=== PATIENT | male | born 1965 | race Caucasian/White ===

== ENCOUNTER → 2022-06-05 13:03 | Outpatient (BNVA) | payer OTHER, SELFPAY | PROVIDERS: Visit Provider Nurse Practitioner Family | DX: I10 Essential (primary) hypertension (principal); Z12.5 Encounter for screening for malignant neoplasm of prostate; R36.1 Hematospermia; N40.0 Benign prostatic hyperplasia without lower urinary tract symptoms; L30.9 Dermatitis, unspecified; Z12.11 Encounter for screening for malignant neoplasm of colon; Z80.42 Family history of malignant neoplasm of prostate; F10.20 Alcohol dependence, uncomplicated; Z76.89 Persons encountering health services in other specified circumstances | CPT/HCPCS: 80053; 80061; 82607; 82746; 84402; 84403; G0103 ==

== ENCOUNTER → 2022-12-09 14:46 | Outpatient (BNVA) | payer OTHER, SELFPAY | PROVIDERS: PCP Nurse Practitioner Family; Visit Provider Nurse Practitioner Family | DX: R97.20 Elevated prostate specific antigen [PSA] (principal); I10 Essential (primary) hypertension; J30.2 Other seasonal allergic rhinitis; N40.0 Benign prostatic hyperplasia without lower urinary tract symptoms; L30.9 Dermatitis, unspecified | CPT/HCPCS: 80053 ==

== ENCOUNTER → 2023-06-15 10:37 | Outpatient (BNVA) | payer OTHER, SELFPAY | PROVIDERS: PCP Nurse Practitioner Family; Visit Provider Nurse Practitioner Family | DX: I10 Essential (primary) hypertension (principal); N40.0 Benign prostatic hyperplasia without lower urinary tract symptoms; R97.20 Elevated prostate specific antigen [PSA]; L30.9 Dermatitis, unspecified | CPT/HCPCS: 80053; 80061; 85025 ==

== ENCOUNTER → 2023-12-14 10:26 | Outpatient (BNVA) | payer OTHER, SELFPAY | PROVIDERS: PCP Nurse Practitioner Family; Visit Provider Nurse Practitioner Family | DX: I10 Essential (primary) hypertension (principal); N40.0 Benign prostatic hyperplasia without lower urinary tract symptoms; R97.20 Elevated prostate specific antigen [PSA]; F10.20 Alcohol dependence, uncomplicated | CPT/HCPCS: 80053; 80061; 85025 ==